=== PATIENT | female | born 2000 | race Caucasian/White ===

== ENCOUNTER 2024-10-30 14:32 | Emergency (ER) | payer OTHER, SELFPAY ==
[2024-10-30 14:33] VITALS: BP 110/69; PULSE 72; RESP 16; TEMP 36.6; O2SAT 100
--- NOTE | 2024-10-30 15:17 | EDS_ITS ---
HPI History of Present Illness Chief Complaint: Laceration PFSH PFS Home Medications ?Medication ?Instructions ?Recorded ?Last Taken ?Type L norgest/E estradiol-E estrad 0.1 1 tab PO DAILY 10/30/24 Unknown History mg-20 mcg (84)/10 mcg (7) tabs,3mos ([facility]) sertraline 50 mg tablet 50 mg PO DAILY 10/30/24 Unknown History Allergy/AdvReac Type Severity Reaction Status Date / Time No Known Allergies Allergy Verified 10/30/24 14:35 EXAM Physical Exam Const Vital Signs: 10/30/24 14:33 Temperature 97.8 F Temperature Source Temporal Pulse Rate 72 Respiratory Rate 16 Blood Pressure 110/69 Blood Pressure Mean 82 Pulse Ox 100 Oxygen Delivery Method Room Air MDM MDM MDM Narrative Medical decision making narrative: HISTORY OF PRESENT ILLNESS: 24-year-old female presents with left knee laceration. Tetanus was updated within the last year. Notes she was chasing her dog outside in the so she dove into the snow thinking it was soft unfortunately she landed with her left knee onto a rock. Notes severe left knee pain and a laceration as a result. REVIEW OF SYSTEMS: Pertinent positives: Wound Pertinent negatives: Numbness tingling, loss of sensation PHYSICAL EXAM: Nursing triage notes reviewed, Vital signs reviewed Constitutional: please see mdm Extremities: N laceration as below, no obvious deformities Neuro: Intact sensation L1-S1 dermatomal distributions. Intact 5/5 strength in hip flexion (T12-L3). Knee extension (L2-L4). Ankle dorsiflexion (L4-L5). Ankle plantar flexion (S1). Great toe extension (L5). 2+ patellar and Achilles DTRs. Skin: Linear, vertically oriented superficial laceration noted to the left knee MEDICAL DECISION MAKING: Chief Complaint: Knee laceration History obtained from others: Mom Consults: none MDM Narrative: Patient was hemodynamically stable, afebrile and nontoxic-appearing. Exam with left knee laceration The patient suffered lacerations to the left knee On exam there was no evidence of foreign bodies. There was no evidence of neurovascular injury. Patient had a normal distal vascular exam, and had intact ROM and sensation. There was also no evidence of tendon injury, with normal distal full range of motion, flexion, extension, abduction, abduction. There is no evidence of local joint space involvement at this time. Wound care applied (irrigation and/or local cleansing solution). Laceration repair was then performed please see procedure note. The patient was given signs and symptoms warnings for infection, such as increasing pain, redness, swelling, associated heat, pus or fever. Patient was given instructions for timely follow-up for removal. Patient agreed with the plan of care Procedure: Laceration repair. The procedure was performed by myself. Indication: Wound repair Risks and benefits: risks, benefits and alternatives were discussed Consent: Consent was obtained. Wound Details: Left knee, 10 cm in length, 2 mm in depth, no foreign bodies or deeper structures involved. Anesthesia: 1% lidocaine without epinephrine (verbal consent obtained from patient). Wound prep: Patient was prepped and draped in the usual sterile fashion. Tetanus: Up to date Irrigation Solution: Saline Wound Preparation: Cleansed with chlorhexidine The wound was explored to its base in a bloodless field. Procedure Description: Placed 23 running sutures using 4-0 Chromic Gut with close approximation Patient tolerated the procedure well with no immediate complications The patient and/or family, caregivers express understanding. The patient and/or family, caregivers agrees with the plan. Shared decision making: I will have a discussion with the patient and or visitors regarding ris k/benefits of further testing or admission. They will be made aware of of the risk/benefits inherent in this decision they will be given the opportunity to voice understanding. Total critical care time today provided was at least 0 minutes. This excludes separately billable procedures. Critical care time (if documented) is secondary to the patient having high probability of clinically significant/life threatening deterioration in the patient's condition which required my urgent intervention. Impression: 1. Left knee laceration 2. Acute left knee pain Dispo: Discharge home This note was generated with Visto dictation software. It may contain incorrect words, spelling, and punctuation that were not noted in review of the chart prior to signing. Radiography Diagnostic Testing: Clinical Impression(s) from Imaging Studies Knee X-Ray 10/30/24 16:00 IMPRESSION: Normal x-ray examination of the knee. Electronically Signed: Ray Arriaga MD at 16:21 EST , Discharge Plan Triage Chief Complaint: Laceration ED Provider: Michael Hernandez Dx/Rx/DC Orders Instructions: ED Laceration Extremity Prescriptions: No Action sertraline 50 mg tablet 50 mg PO DAILY L norgest/e.estradiol-e.estrad [[facility]] 0.1 mg-20 mcg (84)/10 mcg (7) tablets,dose pack,3 month 1 tab PO DAILY Primary Care Provider: Jhonathan Campuzano Referrals: Gail Soliman MD [Non-Staff] - Activity Restrictions/Additional Instructions: Thank you for trusting us with your care today! Please take Tylenol (2 pills, 650 mg), ibuprofen (2 pills, 400 mg) every 6 hours as needed for pain and fever control. Please keep your wound clean and dry. Please use topical peroxide/Neosporin daily for the first 40 to 72 hours. After which you may use soap and water only. Please return to the emergency department if your symptoms change or worsen. Specifically if you develop redness, white-yellow discharge, increasing warmth, increasing pain or fevers. Please follow with your primary care physician for further outpatient evaluation and management. Print Language: Bangladeshi Disposition Disposition: Home, Self Care
--- NOTE | 2024-10-30 16:00 | RAD_ITS ---
STUDY: X-RAY - LEFT KNEE REASON FOR EXAM: Female, 24 years old. Knee pain. TECHNIQUE: 2 view(s) of the knee. COMPARISON: None. FINDINGS: Normal visualized distal femur. Normal visualized proximal tibia and fibula. Normal proximal tibiofibular articulation. Normal medial femorotibial compartment. Normal lateral femorotibial compartment. Normal patellofemoral articulation. The soft tissue structures are normal. RAD/Knee 1 or 2 Views IMPRESSION: Normal x-ray examination of the knee. Electronically Signed: Ray Arriaga MD at 16:21 EST ,
== END 2024-10-30 16:46 | disposition home or self-care (01) ==
PROVIDERS: Emergency Provider Emergency Medicine; PCP Family Medicine; Referring Provider Emergency Medicine; Visit Provider Emergency Medicine
DX: S81.012A Laceration without foreign body, left knee, initial encounter (principal); W22.09XA Striking against other stationary object, initial encounter; Y93.89 Activity, other specified; Y99.8 Other external cause status
CPT/HCPCS: 12004; 73560; 99282